=== PATIENT | female | born 1940 | race African-American/Black ===

== ENCOUNTER 2017-03-28 09:59 | Day surgery (SDC) | payer MEDICARE, BC ==
[~2017-03-28] VITALS: Ht 160 cm; Wt 64.9 kg
[2017-03-28] MEDS ORDERED: CHOL100046 PO (11:08)
[2017-03-28] MEDS ORDERED: ESTR0.5T PO (11:08)
[2017-03-28] MEDS ORDERED: POTA10TA69 PO (11:08)
[2017-03-28] MEDS ORDERED: TRIA1TAB5 PO (11:08)
[2017-03-28] MEDS ORDERED: ASPI-1035 PO (11:08)
[2017-03-28] MEDS ORDERED: NEBI5TAB3 PO (11:08)
[2017-03-28] MEDS ORDERED: NICARDIPINE 100MCG/ML 10ML VIAL (CATH LAB) IV ONE (11:19)
[2017-03-28] MEDS ORDERED: NITROGLYCERIN 50MCG/ML 10ML VIAL (CATH LAB) IV ONE (11:19)
[2017-03-28] MEDS ORDERED: IOHEXOL-300 100 ML BOTTLE ONE (11:34)
[2017-03-28] MEDS ORDERED: LIDOCAINE HCL 1% 20ML VIAL (Pyxis) INJ ONE (11:34)
[2017-03-28] MEDS ORDERED: FENTANYL CITRATE/PF 50MCG/ML 2ML VIAL ONE (11:35)
[2017-03-28] MEDS ORDERED: MIDAZOLAM HCL 2 MG/2 ML VIAL ONE (11:35)
[2017-03-28] MEDS ORDERED: HEPARIN SODIUM 1,000 UNIT/1ML VIAL IV ONE (11:44)
[2017-03-29] MEDS ORDERED: TRIAMTERENE/HYDROCHLOROTHIAZID 75/50MG TABLET PO SCH (09:00)
[2017-03-29] MEDS ORDERED: ASPIRIN 81MG EC TABLET PO SCH (09:00)
[2017-03-29] MEDS ORDERED: ESTRADIOL 0.5 MG TABLET PO SCH (09:00)
[2017-03-29] MEDS ORDERED: NEBIVOLOL HCL 5 MG TABLET PO SCH (09:00)
== END 2017-03-28 15:00 | disposition home or self-care (01) ==
LOC: CCL 09:59
PROVIDERS: ATTEND Specialist
DX: I25.10 Atherosclerotic heart disease of native coronary artery without angina pectoris (principal); R07.9 Chest pain, unspecified; I11.9 Hypertensive heart disease without heart failure; I09.9 Rheumatic heart disease, unspecified; I05.0 Rheumatic mitral stenosis
CPT/HCPCS: 93458; C1769; C1893; J1644; J2250; J3010; J3490; Q9967